=== PATIENT | female | born 1980 | race Caucasian/White ===

== ENCOUNTER 2023-04-28 08:52 | Outpatient (OUT) | payer BC, SELFPAY ==
--- NOTE | 2023-04-28 09:09 | XR_ITS ---
The [address] [address] Patient Name: ROWDY MENDOZA MRN: [id number] date: 1980 Sex: F Assigned Patient Location: RAD Current Patient Location: RAD Accession/Order Number: [id number] Exam Date: 04/28/2023 09:14 Report Date: 04/28/2023 09:40 At the request of: STEPHANIE SALAZAR Procedure: XR chest 2V EXAM: Chest, PA and lateral: HISTORY: Cough and shortness of breath for a week. Known left rib fractures. Comparison studies: CT dated 03/11/2023 TECHNIQUE: Frontal and lateral views of the chest were obtained. FINDINGS: The lungs are well-inflated and clear. The heart is normal in size. No obvious mass or adenopathy is seen. Osseous structures are normal. XR/XR chest 2V IMPRESSION: Negative exam. Electronically authenticated by: CHATO EUBANKS Date: 04/28/2023 09:40
--- NOTE | 2023-04-28 09:09 | XR_ITS ---
The [address] [address] Patient Name: ROWDY MENDOZA MRN: [id number] date: 1980 Sex: F Assigned Patient Location: RAD Current Patient Location: [facility] Accession/Order Number: [id number] Exam Date: 04/28/2023 09:14 Report Date: 04/28/2023 09:43 At the request of: STEPHANIE SALAZAR Procedure: XR ribs LT 2V EXAM: Left ribs HISTORY: Cough and shortness of breath for a week, known left rib fractures. COMPARISON STUDY: CT dated 03/11/2023 TECHNIQUE: 4 views of the left ribs and chest were obtained. FINDINGS: The 8th left rib fracture seen on the CT is not appreciated on this exam. There are no suspicious bone lesions. Soft tissues are normal. XR/XR ribs LT 2V IMPRESSION: The 8th left rib fracture on the CT is not visualized on this exam. There is no evidence of pneumothorax or other complication. Electronically authenticated by: CHATO EUBANKS Date: 04/28/2023 09:43
== END 2023-04-28 08:53 | disposition home or self-care (01) ==
LOC: RAD 08:58
PROVIDERS: Visit Provider Internal Medicine
DX: S22.32XA Fracture of one rib, left side, initial encounter for closed fracture (principal)
CPT/HCPCS: 71046; 71100